=== PATIENT | female | born 1985 | race Caucasian/White ===

== ENCOUNTER 2023-11-29 22:58 | Emergency (ER) | payer SELFPAY ==
[~2023-11-29] VITALS: Ht 147.3 cm; Wt 60.9 kg
[~2023-11-29 22:58] MED LIST: HYDROCHLOROTHIA1 T14 PO
[2023-11-29 23:37] LABS: BASO # 0.05 K/mm3 (0.02-0.10); EOS # 0.11 K/mm3 (0.04-0.40); EOS % 1.1 % (1.0-5.0); HEMATOCRIT 43.7 % (37.0-47.0); HEMOGLOBIN 14.5 g/dL (12.5-16.0); LYMPH# 3.12 K/mm3 (1.50-4.00); MEAN CELL VOLUME 92 fl (78-100); MEAN CORPUSCULAR HEMOGLOBIN 30 pg (27-31); MEAN CORPUSCULAR HGB CONC 33 g/dL (33-37); MEAN PLATELET VOLUME 9.4 fl (7.4-10.4); MONO # 0.55 K/mm3 (0.20-0.80); NEU # 6.09 K/mm3 (1.40-6.50); PLATELET COUNT 352 K/mm3 (130-400); RED BLOOD COUNT 4.77 M/mm3 (4.10-5.30); WHITE BLOOD COUNT 9.9 K/mm3 (4.8-10.8)
[2023-11-29 23:47] LABS: CALCIUM 9.7 mg/dL (8.3-10.5)
[2023-11-29 23:48] LABS: ALBUMIN 4.1 g/dL (3.5-5.0); GLUCOSE 93 mg/dL (65-105); SODIUM 140 mmol/L (136-145)
[2023-11-29 23:51] LABS: CARBON DIOXIDE 22 mmol/L (22-29)
[2023-11-29 23:52] LABS: TOTAL BILIRUBIN 0.2 mg/dL (0.2-1.2)
[2023-11-29 23:54] LABS: AST-SGOT 22 U/L (5-34)
[2023-11-29 23:55] LABS: ALT/SGPT 15 U/L (0-55)
[2023-11-30 00:03] LABS: TROPONIN-I < 0.030 ng/mL (0.00-0.033)
[2023-11-30 00:35] VITALS: BP 148/90
== END 2023-11-30 00:37 | disposition home or self-care (01) ==
LOC: ED 22:58
PROVIDERS: Family Medicine
DX: R04.2 Hemoptysis (principal); I10 Essential (primary) hypertension; F17.210 Nicotine dependence, cigarettes, uncomplicated; Z79.899 Other long term (current) drug therapy